=== PATIENT | female | born 1980 | race Two or more races ===

== ENCOUNTER 2021-01-20 15:35 | Outpatient (AMBR) | payer MEDICAID, SELFPAY ==
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
--- NOTE | 2020-12-30 19:06 | PT.ODAYNRPT ---
PT Outpatient Daily Note Date of Service: 12/30/20 OP Daily Note Visit Reasons: PARAPLEGIA Outpatient Physical Therapy Treatment Date: 12/30/20 Subjective: Pt and mom want to find a support for her to wear in the W/C so she doesn't lean due to lack of trunk stabilization. Objective: See F/S for therex Assessment: Pt has difficulty with trunk stability in sitting and uses hands to support. She was able to lay prone to stretch hip flexors and almost extend hips to neutral. They tend to flex due to tone. Plan: Continue per POC Length of Time (minutes) of Treatment: 30 Minutes Office Procedures PT Procedures PT Date of Service: 12/30/20 Therapeutic Exercise 30 minutes: Yes PT Procedures PT Date of Service: 12/24/20 OP PT Eval Mod Complex 30 minutes: Yes
--- NOTE | 2021-01-02 16:50 | PT.ODAYNRPT ---
PT Outpatient Daily Note Date of Service: 01/02/21 OP Daily Note Visit Reasons: PARAPLEGIA Outpatient Physical Therapy Treatment Date: 01/02/21 Subjective: Pt and mom want to find a support for her to wear in the W/C so she doesn't lean due to lack of trunk stabilization. Objective: See F/S for therex Assessment: Pt has difficulty with trunk stability in sitting and uses hands to support but can do resistive work with therabands and lean fwd with hands supported on the ball. Her mom lifts her out of the truck into her W/C to transfer. Plan: Continue per POC Length of Time (minutes) of Treatment: 30 Minutes Office Procedures PT Procedures PT Date of Service: 12/30/20 Therapeutic Exercise 30 minutes: Yes PT Procedures PT Date of Service: 01/02/21 Therapeutic Exercise 30 minutes: Yes PT Procedures PT Date of Service: 12/24/20 OP PT Eval Mod Complex 30 minutes: Yes
--- NOTE | 2021-01-08 18:26 | PT.ODAYNRPT ---
PT Outpatient Daily Note Date of Service: 01/08/21 OP Daily Note Visit Reasons: PARAPLEGIA Outpatient Physical Therapy Treatment Date: 01/08/21 Subjective: Sometimes the LE's extend on their own which makes transferring difficult Objective: See F/S for therex Assessment: Pt has difficulty with trunk stability in sitting and uses hands to support but can do resistive work with therabands and lean fwd with hands supported on the ball. Her mom lifts her out of the truck into her W/C to transfer. Plan: Continue per POC Office Procedures PT Treatments PT Date of Service: 12/30/20 Therapeutic Exercise 30 minutes: Yes PT Treatments PT Date of Service: 01/02/21 Therapeutic Exercise 30 minutes: Yes PT Treatments PT Date of Service: 12/24/20 OP PT Eval Mod Complex 30 minutes: Yes PT Treatments PT Date of Service: 01/08/21 Therapeutic Exercise 30 minutes: Yes
--- NOTE | 2021-01-13 17:23 | PTNOTE_ITS ---
PT Outpatient Daily Note Date of Service: 01/13/21 OP Daily Note Visit Reasons: PARAPLEGIA Outpatient Physical Therapy Treatment Date: 01/13/21 Subjective: Pt stated felt like falling off the mat when in prone position on mat near the wall. Objective: See flow chart. Assessment: Pt felt loss of balance with trunk stability sitting in WC while performing rows w/ green TB. Pt strongly recreation attendant supervisor onto mat while performing alternating hand reaching for trunk stability. Plan: Cont POC. Office Procedures PT Treatments PT Date of Service: 12/30/20 Therapeutic Exercise 30 minutes: Yes PT Treatments PT Date of Service: 01/02/21 Therapeutic Exercise 30 minutes: Yes PT Treatments PT Date of Service: 12/24/20 OP PT Eval Mod Complex 30 minutes: Yes PT Treatments PT Date of Service: 01/08/21 Therapeutic Exercise 30 minutes: Yes PT Treatments PT Date of Service: 01/13/21 Therapeutic Exercise 30 minutes: Yes
--- NOTE | 2021-01-20 15:36 | PT.ODAYNRPT ---
PT Outpatient Daily Note Date of Service: 01/20/21 OP Daily Note Visit Reasons: PARAPLEGIA Outpatient Physical Therapy Treatment Date: 01/20/21 Subjective: Pt presented 10 min. late and willing to participate. Objective: See flow chart for therex. Assessment: Pt has tendency to lean forward while performing seated rows w/ green TB. Pt felt challenged while performing sitting SB side to side for improving trunk stability. Plan: Cont POC. Length of Time (minutes) of Treatment: 30 Minutes Office Procedures PT Treatments PT Date of Service: 12/30/20 Therapeutic Exercise 30 minutes: Yes PT Treatments PT Date of Service: 01/02/21 Therapeutic Exercise 30 minutes: Yes PT Treatments PT Date of Service: 12/24/20 OP PT Eval Mod Complex 30 minutes: Yes PT Treatments PT Date of Service: 01/08/21 Therapeutic Exercise 30 minutes: Yes PT Treatments PT Date of Service: 01/13/21 Therapeutic Exercise 30 minutes: Yes PT Treatments PT Date of Service: 01/20/21 Therapeutic Exercise 30 minutes: Yes
== END 2021-01-22 23:59 | disposition home or self-care (01) ==
PROVIDERS: PCP Family Medicine; Referring Provider Family Medicine; Visit Provider Family Medicine
DX: G82.20 Paraplegia, unspecified (principal); Z99.3 Dependence on wheelchair
CPT/HCPCS: 97110; 97162